=== PATIENT | female | born 1965 | race Caucasian/White ===

== ENCOUNTER 2022-06-24 03:26 | Emergency (ER) | payer SELFPAY ==
[2022-06-24 03:34] VITALS: BP 159/81; PULSE 80; RESP 16; TEMP 37.2; O2SAT 96; BMI 29.3
--- NOTE | 2022-06-24 03:47 | ED_ITS ---
HPI - Abdominal Pain General Date Seen: 06/24/22 Chief Complaint: Abdominal Pain Stated Complaint: Stomach hurts real bad Time Seen by Provider: 06/24/22 03:31 Source: patient Mode of arrival: ambulatory Limitations: no limitations History of Present Illness HPI narrative: Patient is a 57-year-old diabetic type 2 presents here with epigastric burning for the last 24 hours, she notes that it is in her stomach, seemingly worse tonight, that she was having a trouble sleeping. She has tried antacids for this with really no improvement, was able eat 3 meals yesterday incident eating does not really exacerbate or make it better. Her bowel movements have been normal. She has had no nausea, vomiting associated with this denies a fevers chills back pain, radiation of discomfort. Wonders if it is related to the fact that she has been off her omeprazole for approximately a month, she also has not taking her diabetic medications. No previous history of any heart issues, but she is a smoker times 40+ years, no blood in her stools, no darkening of her stools, They have just moved here from [place] in the last 2 weeks and have not yet established with any providers. MD elicited complaint: abdominal pain Pertinent past history: gastritis Onset (ago): day(s) (1-2) Pain Consistency: constant Location: epigastric Severity: moderate Quality: fullness and burning Radiation: none Migration to: no migration Exacerbating factors: movement and rest Relieving factors: nothing Associated symptoms: denies other symptoms Treatments prior to arrival: antacids Related Data Patient : No Previous Rx's Medication Instructions Recorded omeprazole 20 mg capsule,delayed 20 mg PO DAILY #30 caps 06/24/22 release Allergies Allergy/AdvReac Type Severity Reaction Status Date / Time duloxetine [From Cymbalta] AdvReac Verified 06/24/22 03:37 hydromorphone [From Dilaudid] AdvReac Verified 06/24/22 03:37 morphine AdvReac Verified 06/24/22 03:37 Penicillins AdvReac Verified 06/24/22 03:37 Review of Systems Status of ROS Reports: 10 or more systems reviewed and unremarkable except as noted in History and below [facility] Medical History Diabetes mellitus, type 2 Surgical History History of appendectomy History of cholecystectomy Social History Smoking Status: Current every day smoker What tobacco products do you use: cigarettes Do you use any of these nicotine containing products: None Non-prescribed substance use: denies use Exam Narrative: Exam Narrative: Patient is seen in room 6 in no apparent distress, she is sitting in the room quietly, with her vital signs are reviewed and normal, her pupils equal round reactive to light her TMs are normal oropharynx is normal neck is supple full range of motion her chest is clear bilaterally with no wheezing crackles noted heart sounds are normal, with occasional wheezes in her chest. Abdomen is soft and obese, she has some tenderness in her epigastric in deep palpation. But is otherwise normal. Bowel sounds are normal throughout her entire abdomen. There is no peritoneal signs, no organomegaly, and no CVA tenderness, she was all extremities independently and well, Const: Vital Signs, click to edit/add: Vital Signs - 24 hr 06/24/22 03:34 Temperature 98.9 F Pulse Rate [Left P ulse Oximeter] 80 Respiratory Rate 16 Blood Pressure [Le ft Upper Arm] 159/81 H Pulse Oximetry 96 Oxygen Delivery Me thod Room Air Documenting provider has reviewed patient's vital signs: yes Course Course Hospital Course: Discussed with the patient her EKG, laboratory work was normal, given the fact that the pain is gone on for 24 hours, and his epigastric and atypical for cardiac, even though she has risk factors I think this is unlikely to be cardiac ischemia, her heart score is also low. I think follow-up with primary care is indicated cause of her hyperglycemia, I explained to her that I think within the next week this should be done she was in agreement, the physician I suggested t hat she see is a very good physician will be able to help her. Smoking cessation is also suggested, Vital Signs Vital signs: Initial Vital Signs Temperature 98.9 F 06/24/22 03:34 Temperature Source Temporal Artery Scan 06/24/22 03:34 Pulse Rate 80 06/24/22 03:34 Respiratory Rate 16 06/24/22 03:34 Blood Pressure 159/81 H 06/24/22 03:34 Blood Pressure Mean 107 06/24/22 03:34 Blood Pressure Position Sitting 06/24/22 03:34 Pulse Oximetry 96 06/24/22 03:34 Oxygen Delivery Method 06/24/22 03:34 Vital Signs Temperature 98.9 F 06/24/22 03:34 Pulse Rate 80 06/24/22 03:34 Respiratory Rate 16 06/24/22 03:34 Blood Pressure 159/81 H 06/24/22 03:34 Pulse Oximetry 96 06/24/22 03:34 Oxygen Delivery Method 06/24/22 03:34 Temperature 98.9 F 06/24/22 03:34 Pulse Rate 80 06/24/22 03:34 Respiratory Rate 16 06/24/22 03:34 Blood Pressure 159/81 H 06/24/22 03:34 Pulse Oximetry 96 06/24/22 03:34 Oxygen Delivery Method 06/24/22 03:34 MDM - Abdominal Pain MDM Narrative Medical decision making narrative: During the evaluation of this patient I considered multiple differential diagnosis including life-threatening differentials which are appendicitis, aortic aneurysm, mesenteric ischemia, bowel perforation, ectopic , volvulus and bowel obstruction, other differential diagnosis include but are not limited to inflammatory bowel disease, cholecystitis, pancreatitis, hepatitis, gastritis, GERD, diverticulitis, peptic ulcer disease, pyelonephritis/UTI, renal colic/stone, pelvic inflammatory disease, cervicitis, endometritis, intrauterine , dysfunctional uterine bleeding, ovarian cyst/torsion, spontaneous as well as other etiologies In addition I think ruling out a heart issue given the fact that she is a smoker and a diabetic is important, I will add a troponin EKG, and likely repeat these. Most likely diagnosis here however is more of a gastritis type picture. Given the above findings and her Medical Records Attestation: I reviewed the patient's medical records. Lab Data Attestation: I reviewed the patient's lab results. Labs: Lab Results 06/24/22 06/24/22 06/24/22 Range/Units 03:50 03:50 03:50 WBC 9.21 (4.50-11.00) K/uL RBC 4.98 (4.00-5.20) m/uL Hgb 14.9 (12.0-16.0) gm/dL Hct 43.2 (33.0-51.0) % MCV 87 (80-100) fL MCH 30 (26-34) pg MCHC 35 (32-36) gm/dL RDW Coeff of Min 12.8 (11.5-15.5) % Plt Count 366 (140-440) K/uL Neut % (Auto) 42.6 (42.0-72.0) % Lymph % (Auto) 46.3 H (20-44) % [place] % (Auto) 7.3 (0.0-11.0) % Eos % (Auto) 3.0 (0.0-7.0) % Baso % (Auto) 0.7 (0.0-3.0) % Neut # (Auto) 3.93 (1.7-7.0) K/uL Lymph # (Auto) 4.30 H (0.90-2.90) K/uL [place] # (Auto) 0.70 (0.00-0.90) K/UL Eos # (Auto) 0.28 (0.00-0.50) K/uL Baso # (Auto) 0.06 (0.00-0.30) K/uL Abs Immat Gran (auto) 0.01 (0.00-0.30) K/uL Sodium 137 (135-149) mmol/L Potassium 4.1 (3.6-5.1) mmol/L Chloride 101 (96-114) mmol/L Carbon Dioxide 25 (20-32) mmol/L BUN 17 (7-30) mg/dL Creatinine 0.6 (0.5-1.5) mg/dL Estimated Creat Clear 81.82 Estimated GFR 105 ml/min Glucose 307 H (60-115) mg/dL Calcium 9.9 (8.4-10.6) mg/dL Total Bilirubin 0.4 (0.1-1.5) mg/dL Direct Bilirubin 0.1 (0.0-0.5) mg/dL AST 18 (12-35) U/L ALT 25 (4-35) U/L Alkaline Phosphatase 84 (40-150) U/L Total Protein 7.7 (6.0-8.3) g/dL Albumin 4.6 (3.3-5.0) g/dL Amylase 66 (18-89) U/L Lipase 133 (23-300) U/L Urine Color Yellow (Yellow) Urine Appearance Clear (Clear) Urine pH 5.5 (5.0-8.5) Ur Specific [place] >= 1.030 (1.000-1.030) Urine Protein Negative (Negative) Urine Glucose (UA) 2+ A (Negative) Urine Ketones Negative (Negative) Urine Blood Negative (Negative) Urine Nitrite Negative (Negative) Urine Bilirubin Negative (Negative) Urine Urobilinogen 0.2 (0.2-1.0) Ur Leukocyte Esterase Negative (Negative) Urine RBC 0-2 (0-2) Urine WBC 0-2 (0-5) Ur Squamous Epith Cells Few (None-Few) Urine Bacteria Few A (None) Ethyl Alcohol < 0.01 L (0.01-0.03) % POC Troponin I (0.01-0.04) ng/ml 06/24/22 Range/Units 03:50 WBC (4.50-11.00) K/uL RBC (4.00-5.20) m/uL Hgb (12.0-16.0) gm/dL Hct (33.0-51.0) % MCV (80-100) fL MCH (26-34) pg MCHC (32-36) gm/dL RDW Coeff of Min (11.5-15.5) % Plt Count (140-440) K/uL Neut % (Auto) (42.0-72.0) % Lymph % (Auto) (20-44) % [place] % (Auto) (0.0-11.0) % Eos % (Auto) (0.0-7.0) % Baso % (Auto) (0.0-3.0) % Neut # (Auto) (1.7-7.0) K/uL Lymph # (Auto) (0.90-2.90) K/uL [place] # (Auto) (0.00-0.90) K/UL Eos # (Auto) (0.00-0.50) K/uL Baso # (Auto) (0.00-0.30) K/uL Abs Immat Gran (auto) (0.00-0.30) K/uL Sodium (135-149) mmol/L Potassium (3.6-5.1) mmol/L Chloride (96-114) mmol/L Carbon Dioxide (20-32) mmol/L BUN (7-30) mg/dL Creatinine (0.5-1.5) mg/dL Estimated Creat Clear Estimated GFR ml/min Glucose (60-115) mg/dL Calcium (8.4-10.6) mg/dL Total Bilirubin (0.1-1.5) mg/dL Direct Bilirubin (0.0-0.5) mg/dL AST (12-35) U/L ALT (4-35) U/L Alkaline Phosphatase (40-150) U/L Total Protein (6.0-8.3) g/dL Albumin (3.3-5.0) g/dL Amylase (18-89) U/L Lipase (23-300) U/L Urine Color (Yellow) Urine Appearance (Clear) Urine pH (5.0-8.5) Ur Specific [place] (1.000-1.030) Urine Protein (Negative) Urine Glucose (UA) (Negative) Urine Ketones (Negative) Urine Blood (Negative) Urine Nitrite (Negative) Urine Bilirubin (Negative) Urine Urobilinogen (0.2-1.0) Ur Leukocyte Esterase (Negative) Urine RBC (0-2) Urine WBC (0-5) Ur Squamous Epith Cells (None-Few) Urine Bacteria (None) Ethyl Alcohol (0.01-0.03) % POC Troponin I 0.00 L (0.01-0.04) ng/ml ECG Data Attestation: I personally reviewed and interpreted this ECG as follows: ECG interpretation date: 06/24/22 ECG interpretation time: 04:56 Prior ECG tracings: not available for review Interpretation: Normal sinus rhythm with a ventricular rate of 79, normal QRS, normal QT, normal IA, no acute ST wave changes Assessment: Normal EKG Discharge Plan Discharge Clinical Impression: Diabetes, Gastritis Patient Disposition: Home w/ Parent or Adult Condition: Stable Instructions: Gastritis (DC), Diabetes and Nutrition (ED), Type 2 Diabetes Management for Adults (ED) Additional Instructions: Home, rest, take medications as directed, follow-up with the physician that I said your referred to, he can help you with her medications and getting him back onto tap with your diabetes. Prescriptions: New omeprazole 20 mg capsule,delayed release(DR/EC) 20 mg PO DAILY Qty: 30 2RF Follow Up/Referrals: Jones,Saulo, MD [Staff Physician] - Provider,Not a Local [Primary Care Provider] - Stand Alone Forms: [employer] Info Instructions
[2022-06-24] MEDS: 0.9 % SODIUM CHLORIDE 1000 ml 1,000 ML IV (03:57)
[2022-06-24] MEDS: ONDANSETRON 2 MG/ML inj 4 MG IVP (03:57)
[2022-06-24] MEDS: PANTOPRAZOLE SODIUM 40 MG INJ IVP (03:57)
[2022-06-24 04:03] LABS: Basophils Absolute Auto 0.06 K/uL (0.00-0.30); Basophils Percent Auto 0.7 % (0.0-3.0); Eosinophils Absolute Auto 0.28 K/uL (0.00-0.50); Hematocrit 43.2 % (33.0-51.0); Hemoglobin* 14.9 gm/dL (12.0-16.0); Immature Granulocytes Abs Auto 0.01 K/uL (0.00-0.30); Lymphocytes Percent Auto 46.3 % (20-44); Mean Corpuscular HGB Conc 35 gm/dL (32-36); Mean Corpuscular Hemoglobin 30 pg (26-34); Mean Corpuscular Volume 87 fL (80-100); Monocytes Percent Auto 7.3 % (0.0-11.0); Neutrophils Absolute Auto 3.93 K/uL (1.7-7.0); Neutrophils Percent Auto 42.6 % (42.0-72.0); Platelet Count* 366 K/uL (140-440); RDW Coefficient of Variation % 12.8 % (11.5-15.5); Red Blood Count 4.98 m/uL (4.00-5.20); White Blood Count* 9.21 K/uL (4.50-11.00)
[2022-06-24] MEDS: GI COCKTAIL (VISC LIDO/ANTACID) 30 ML PO (04:05)
[2022-06-24 04:13] LABS: Appearance Urine Clear (Clear); Bilirubin Urine Negative (Negative); Blood Urine Negative (Negative); Color Urine Yellow (Yellow); Glucose Urine 2+ (Negative); Ketones Urine Negative (Negative); Leukocyte Esterase Urine Negative (Negative); Nitrite Urine Negative (Negative); Protein Urine Negative (Negative); Specific Gravity Urine >= 1.030 (1.000-1.030); Urobilinogen Urine 0.2 (0.2-1.0); pH Urine 5.5 (5.0-8.5)
[2022-06-24 04:14] LABS: Slide Review Reflex No
[2022-06-24 04:17] LABS: Albumin* 4.6 g/dL (3.3-5.0)
[2022-06-24 04:18] LABS: Chloride* 101 mmol/L (96-114); Potassium* 4.1 mmol/L (3.6-5.1); Sodium* 137 mmol/L (135-149)
[2022-06-24 04:20] LABS: Amylase* 66 U/L (18-89); Aspartate Amino Transferase* 18 U/L (12-35); Bilirubin Direct* 0.1 mg/dL (0.0-0.5); Bilirubin Total* 0.4 mg/dL (0.1-1.5); Blood Urea Nitrogen* 17 mg/dL (7-30); Carbon Dioxide* 25 mmol/L (20-32); Creatinine* 0.6 mg/dL (0.5-1.5); Est. Creatinine Clearance* 81.82; Estimated Glomerular Filt Rate 105 ml/min; Total Protein* 7.7 g/dL (6.0-8.3)
[2022-06-24 04:21] LABS: Alanine Aminotransferase* 25 U/L (4-35); Alkaline Phosphatase* 84 U/L (40-150); Calcium* 9.9 mg/dL (8.4-10.6); Glucose* 307 mg/dL (60-115); Lipase* 133 U/L (23-300)
[2022-06-24 04:28] LABS: Ethanol* < 0.01 % (0.01-0.03); RBC Urine 0-2 (0-2); WBC Urine 0-2 (0-5)
[2022-06-24 04:29] LABS: Bacteria Urine Few; Squamous Epithelial Cell Urine Few (None-Few)
[2022-06-24 05:03] VITALS: BP 148/76; PULSE 74; RESP 16
== END 2022-06-24 05:03 | disposition home or self-care (01) ==
PROVIDERS: Emergency Provider Family Medicine
DX: E11.9 Type 2 diabetes mellitus without complications (principal); K29.70 Gastritis, unspecified, without bleeding
CPT/HCPCS: 36415; 80048; 80076; 81001; 82077; 82150; 83690; 85025; 87086; 93005; 96374; 96375; 99284; A9270; C9113; J2405; J7030

== ENCOUNTER 2022-07-13 09:25 | Outpatient (CLI) | payer OTHER, SELFPAY ==
[2022-07-13 14:57] LABS: Cholesterol* 277 mg/dL (90-199)
[2022-07-13 14:58] LABS: HDL Cholesterol* 48 mg/dL (>=50); LDL Cholesterol Calculated 196 mg/dL (<100); Triglycerides* 165 mg/dL (40-149)
== END 2022-07-13 09:26 | disposition home or self-care (01) ==
LOC: FBOREF 09:26
PROVIDERS: Visit Provider Family Medicine
DX: E78.5 Hyperlipidemia, unspecified (principal); E11.9 Type 2 diabetes mellitus without complications
CPT/HCPCS: 80061

== ENCOUNTER 2022-08-04 14:55 | Emergency (ER) | payer OTHER, SELFPAY ==
[2022-08-04 15:04] VITALS: BP 135/82; PULSE 86; RESP 16; TEMP 36.8; O2SAT 92; BMI 31.0
--- NOTE | 2022-08-04 16:04 | CRLHL7_ITS ---
For Patients: As a result of the Century Cures Act, medical imaging exams and procedure reports are released immediately into your electronic medical record. You may view this report before your referring provider. If you have questions, please contact your health care provider. INDICATION: Headache TECHNIQUE: CT head without contrast. COMPARISON: None FINDINGS: CSF spaces: Within normal limits for age. Brain parenchyma: The palacios-white differentiation is normal. No sign of mass, hemorrhage, or midline shift. Skull base and calvarium: Mild pansinus mucosal thickening. The visualized orbits are grossly unremarkable. No skull fractures. IMPRESSION: No acute intracranial abnormalities. Mild pansinus mucosal thickening. Dictated by Kurt Preston MD @ 08/04/2022 4:37:38 PM Please note that all CT scans at this facility use dose modulation, iterative reconstruction, and/or weight-based dosing when appropriate to reduce radiation dose to as low as reasonably achievable. Dictated by: Kurt Preston MD @ 08/04/2022 16:37:44 (Electronically Signed)
--- NOTE | 2022-08-04 16:07 | ED_ITS ---
HPI - General Adult General Chief complaint: Headache/Migraine Stated complaint: Sharp Pain in head and down Left Arm Seeing Stars Time Seen by Provider: 08/04/22 15:29 History of Present Illness HPI narrative: This 57-year-old female comes in with her because of a sudden onset s ymptoms that occurred an hour so prior to arrival. She states she was ambulating and had sudden onset of headache, chest pain, and lightheadedness. She states that she almost lost consciousness. She reports some visual changes including seeing stars in her visual field that lasted about 20 minutes. She states that she does have a history of occasional migraine headaches. She does not report any nausea, vomiting, shortness of breath, or diaphoresis. Prior to this she states that she has good exercise tolerance. She does have diabetes. Related Data Home Medications Medication Instructions Recorded Confirmed ceylon cinnamon 1,400 mg PO QDAY 07/13/22 08/04/22 ipratropium 20 mcg-albuterol 100 1 puff inhalation Q6H 07/13/22 08/04/22 mcg/actuation mist for inhalation (Combivent Respimat) Previous Rx's Medication Instructions Recorded omeprazole 20 mg capsule,delayed 20 mg PO DAILY #30 caps 06/24/22 release empagliflozin 25 mg tablet 25 mg PO QAM #30 tabs 07/13/22 (Jardiance) glimepiride 4 mg tablet 4 mg PO QAM #30 tabs 07/13/22 atorvastatin 20 mg tablet 20 mg PO QDAY #90 tabs 07/14/22 Blood Glucose Meter #1 ea 08/02/22 Diabetic Test Strips #100 ea 08/02/22 fluconazole 150 mg tablet 150 mg PO Q3D 2 doses #2 tabs 08/02/22 (Diflucan) lancets 30 gauge #100 ea 08/02/22 ketorolac 10 mg tablet 10 mg PO Q8H 5 days #15 tabs 08/04/22 ondansetron HCl 4 mg tablet 4 mg PO Q6H #20 tabs 08/04/22 Allergies Allergy/AdvReac Type Severity Reaction Status Date / Time duloxetine [From Cymbalta] AdvReac Verified 08/04/22 15:10 hydromorphone [From Dilaudid] AdvReac Verified 08/04/22 15:10 morphine AdvReac Verified 08/04/22 15:10 Penicillins AdvReac Verified 08/04/22 15:10 Review of Systems Status of ROS: Reports: 10 or more systems reviewed and unremarkable except as noted in History and below Narrative: Constitutional: No fevers, no weight gain or loss. Eyes: No discharge. She saw stars in her visual field for about 20 minutes after the onset of her symptoms. HENT: No congestion, no sore throat, no ear pain. Cardiovascular: No palpitations. She reports chest pain. Respiratory: No shortness of breath, no wheezes, no cough. Gastrointestinal: No abdominal pain, no vomiting, no diarrhea. Genitourinary: No dysuria, no hematuria. Musculoskeletal: Normal range of motion. Skin: No rashes, no pruritis. Neurological: No dizziness, weakness, sensory change, speech change. Endo/Heme/Allergies: No bruising or bleeding. No polydipsia. Pysch: no suicidality, no anxiety, no insomnia. All other systems reviewed and are negative. [facility] Medical History (Updated 08/04/22 @ 18:29 by Jero Collazo MD) COPD (chronic obstructive pulmonary disease) Hyperlipidemia Type 2 diabetes mellitus Yeast vaginitis Surgical History (Updated 07/23/22 @ 23:26 by Kurt Jones MD) History of appendectomy History of bladder surgery History of section History of cholecystectomy Family History (Updated 07/17/22 @ 01:06 by Kurt Jones MD) Maternal Grandmother Heart disease Paternal Grandfather Heart disease Other Diabetes Stroke Social History (Updated 07/17/22 @ 01:05 by Kurt Jones MD) Narrative: , two kids, Deli food demonstrator, 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 HEENT: Normocephalic, atraumatic. Neck: Normal range of motion. Nontender. Supple. Heart: Regular. No murmurs. Normal rate. Intact distal pulses. Lungs: Clear to auscultation. No chest discomfort. No wheezes, rhonchi, or rales. Abdomen: Normal bowel sounds. Nontender. No rebound tenderness. Genitalia: Deferred. Back: No midline tenderness. Normal range of motion. Extremities: Normal range of motion. No injury. Skin: Intact. No rash. Warm. No erythema or pallor. Neurologic: No altered sensation. No weakness. Alert and oriented. Psychiatric: No suicidality. No anxiety or depression. No insomnia. Nursing notes and vitals signs are reviewed. Const: Vital Signs, click to edit/add: Vital Signs - 24 hr 08/04/22 15:04 08/04/22 18:01 Temperature 98.3 F 98.2 F Pulse Rate [Right Pulse Oximeter] 86 Respiratory Rate 16 Blood Pressure [Ri ght Upper Arm] 135/82 Pulse Oximetry 92 Oxygen Delivery Me thod Room Air Course Vital Signs Vital signs: Initial Vital Signs Temperature 98.3 F 08/04/22 15:04 Temperature Source Temporal Artery Scan 08/04/22 15:04 Pulse Rate 86 08/04/22 15:04 Respiratory Rate 16 08/04/22 15:04 Blood Pressure 135/82 08/04/22 15:04 Blood Pressure Mean 99 08/04/22 15:04 Blood Pressure Position Sitting 08/04/22 15:04 Pulse Oximetry 92 08/04/22 15:04 Oxygen Delivery Method 08/04/22 15:04 Vital Signs Temperature 98.3 F 08/04/22 15:04 Pulse Rate 86 08/04/22 15:04 Respiratory Rate 16 08/04/22 15:04 Blood Pressure 135/82 08/04/22 15:04 Pulse Oximetry 92 08/04/22 15:04 Oxygen Delivery Method 08/04/22 15:04 Temperature 98.2 F 08/04/22 18:01 Pulse Rate 86 08/04/22 15:04 Respiratory Rate 16 08/04/22 15:04 Blood Pressure 135/82 08/04/22 15:04 Pulse Oximetry 92 08/04/22 15:04 Oxygen Delivery Method 08/04/22 15:04 Medical Decision Making [facility] Narrative Medical decision making narrative: This patient comes in with headache, lightheadedness, some visual changes, and some chest discomfort. She arrives with normal vital signs. She did not have any other symptoms specifically. She states that she has good exercise tolerance. She does have diabetes but does not report any history heart disease. EKG shows normal sinus rhythm without any ST or T-wave abnormalities. Lab results also returned with normal findings. In particular her troponin is 0. CT scan of the head also shows no acute abnormalities. The patient received oral doses of Toradol 10 mg, Benadryl 25 mg, and Zofran 4 mg. This brought great relief to her symptoms. As for her chest discomfort she does state that she can reproduce this pain somewhat by palpating in upper sternal area. At the time of discharge the patient appears safe for outpatient management. The treatment plan is reviewed along with written and verbal return precautions. Reasons to return and the importance of close followup were also reviewed. Lab Data Labs: Lab Results 08/04/22 08/04/22 08/04/22 Range/Units 16:30 16:30 16:30 WBC 10.51 (4.50-11.00) K/uL RBC 4.60 (4.00-5.20) m/uL Hgb 13.6 (12.0-16.0) gm/dL Hct 41.3 (33.0-51.0) % MCV 90 (80-100) fL MCH 30 (26-34) pg MCHC 33 (32-36) gm/dL RDW Coeff of Min 13.1 (11.5-15.5) % Plt Count 350 (140-440) K/uL Neut % (Auto) 44.9 (42.0-72.0) % Lymph % (Auto) 44.6 H (20-44) % [place] % (Auto) 6.9 (0.0-11.0) % Eos % (Auto) 2.9 (0.0-7.0) % Baso % (Auto) 0.6 (0.0-3.0) % Neut # (Auto) 4.73 (1.7-7.0) K/uL Lymph # (Auto) 4.70 H (0.90-2.90) K/uL [place] # (Auto) 0.70 (0.00-0.90) K/UL Eos # (Auto) 0.30 (0.00-0.50) K/uL Baso # (Auto) 0.06 (0.00-0.30) K/uL Abs Immat Gran (auto) 0.01 (0.00-0.30) K/uL Imm/Tot Granulo (auto) 0.1 % D-Dimer Quant (PE/DVT) 0.47 (0.00-0.50) ug/ml Sodium 141 (135-149) mmol/L Potassium 4.1 (3.6-5.1) mmol/L Chloride 108 (96-114) mmol/L Carbon Dioxide 28 (20-32) mmol/L BUN 15 (7-30) mg/dL Creatinine 0.6 (0.5-1.5) mg/dL Estimated Creat Clear 85.57 Estimated GFR 105 ml/min Glucose 65 (60-115) mg/dL Calcium 9.8 (8.4-10.6) mg/dL C-Reactive Protein (0.5-1.0) mg/dL POC Troponin I (0.01-0.04) ng/ml 08/04/22 08/04/22 Range/Units 16:30 16:49 WBC (4.50-11.00) K/uL RBC (4.00-5.20) m/uL Hgb (12.0-16.0) gm/dL Hct (33.0-51.0) % MCV (80-100) fL MCH (26-34) pg MCHC (32-36) gm/dL RDW Coeff of Min (11.5-15.5) % Plt Count (140-440) K/uL Neut % (Auto) (42.0-72.0) % Lymph % (Auto) (20-44) % [place] % (Auto) (0.0-11.0) % Eos % (Auto) (0.0-7.0) % Baso % (Auto) (0.0-3.0) % Neut # (Auto) (1.7-7.0) K/uL Lymph # (Auto) (0.90-2.90) K/uL [place] # (Auto) (0.00-0.90) K/UL Eos # (Auto) (0.00-0.50) K/uL Baso # (Auto) (0.00-0.30) K/uL Abs Immat Gran (auto) (0.00-0.30) K/uL Imm/Tot Granulo (auto) % D-Dimer Quant (PE/DVT) (0.00-0.50) ug/ml Sodium (135-149) mmol/L Potassium (3.6-5.1) mmol/L Chloride (96-114) mmol/L Carbon Dioxide (20-32) mmol/L BUN (7-30) mg/dL Creatinine (0.5-1.5) mg/dL Estimated Creat Clear Estimated GFR ml/min Glucose (60-115) mg/dL Calcium (8.4-10.6) mg/dL C-Reactive Protein 2.9 H (0.5-1.0) mg/dL POC Troponin I 0.00 L (0.01-0.04) ng/ml Imaging Data CT scan - head: Radiologist's impression: No acute intracranial abnormalities. Mild pansinus mucosal thickening. ECG Data Attestation: I personally reviewed and interpreted this ECG as follows: Interpretation: Normal sinus rhythm. Rate is 86 beats per minute. There are no ST or T-wave abnormalities. Discharge Plan Discharge Clinical Impression: Migraine, Atypical chest pain Patient Disposition: Home, Self-Care Condition: Improved Additional Instructions: Take medication as needed and indicated. Follow up with MD or return if worsening. Prescriptions: New ondansetron HCl 4 mg tablet 4 mg PO Q6H Qty: 20 0RF ketorolac 10 mg tablet 10 mg PO Q8H 5 Days Qty: 15 0RF No Action ceylon cinnamon 1,400 mg PO QDAY Combivent Respimat 20-100 mcg/actuation mist 1 puff inhalation Q6H glimepiride 4 mg tablet 4 mg PO QAM Qty: 30 5RF Rx Instructions: administer with breakfast Jardiance 25 mg tablet 25 mg PO QAM Qty: 30 5RF omeprazole 20 mg capsule,delayed release(DR/EC) 20 mg PO DAILY Qty: 30 2RF atorvastatin 20 mg tablet 20 mg PO QDAY Qty: 90 1RF fluconazole [Diflucan] 150 mg tablet 150 mg PO Q3D Qty: 2 0RF (DME) Blood Glucose Meter Misc See Rx Instructions .Route Qty: 1 0RF Rx Instructions: As directed (DME) Diabetic Test Strips Misc See Rx Instructions .Route Qty: 100 3RF Rx Instructions: Tests BID (DME) lancets 30 gauge misc See Rx Instructions .Route Qty: 100 2RF Rx Instructions: Tests BID Follow Up/Referrals: Provider,Not a Local [Primary Care Provider] - Stand Alone Forms: [facility] Info Instructions
[2022-08-04 17:02] LABS: Basophils Absolute Auto 0.06 K/uL (0.00-0.30); Basophils Percent Auto 0.6 % (0.0-3.0); Eosinophils Percent Auto 2.9 % (0.0-7.0); Hematocrit 41.3 % (33.0-51.0); Hemoglobin* 13.6 gm/dL (12.0-16.0); Immature Granulocytes Abs Auto 0.01 K/uL (0.00-0.30); Immature Granulocytes Pct Auto 0.1 %; Lymphocytes Percent Auto 44.6 % (20-44); Mean Corpuscular HGB Conc 33 gm/dL (32-36); Mean Corpuscular Hemoglobin 30 pg (26-34); Mean Corpuscular Volume 90 fL (80-100); Monocytes Percent Auto 6.9 % (0.0-11.0); Neutrophils Absolute Auto 4.73 K/uL (1.7-7.0); Neutrophils Percent Auto 44.9 % (42.0-72.0); Platelet Count* 350 K/uL (140-440); RDW Coefficient of Variation % 13.1 % (11.5-15.5); White Blood Count* 10.51 K/uL (4.50-11.00)
[2022-08-04 17:07] LABS: Slide Review Reflex No
[2022-08-04 17:29] LABS: Chloride* 108 mmol/L (96-114); Sodium* 141 mmol/L (135-149)
[2022-08-04 17:30] LABS: D Dimer Quantitative* 0.47 ug/ml (0.00-0.50); Potassium* 4.1 mmol/L (3.6-5.1)
[2022-08-04 17:32] LABS: Carbon Dioxide* 28 mmol/L (20-32); Creatinine* 0.6 mg/dL (0.5-1.5); Est. Creatinine Clearance* 85.57; Estimated Glomerular Filt Rate 105 ml/min
[2022-08-04 17:33] LABS: Blood Urea Nitrogen* 15 mg/dL (7-30); Calcium* 9.8 mg/dL (8.4-10.6); Glucose* 65 mg/dL (60-115)
[2022-08-04 17:46] LABS: C Reactive Protein* 2.9 mg/dL (0.5-1.0)
[2022-08-04 18:01] VITALS: TEMP 36.8
[2022-08-04] MEDS: HYDROCODONE-ACETAMIN 5-325 MG 1 TAB PO (18:01)
[2022-08-04] MEDS: diphenhydrAMINE 25 MG CAPSULE PO (18:01)
[2022-08-04] MEDS: KETOROLAC 10 MG TABLET PO (18:02)
[2022-08-04] MEDS: ONDANSETRON ODT 4 MG TAB PO (18:03)
== END 2022-08-04 18:42 | disposition home or self-care (01) ==
PROVIDERS: Emergency Provider Emergency Medicine Emergency Medical Services
DX: G43.909 Migraine, unspecified, not intractable, without status migrainosus (principal); R07.89 Other chest pain
CPT/HCPCS: 36415; 70450; 80048; 84484; 85025; 85379; 86140; 93005; 99284; 99285; A9270

== ENCOUNTER 2022-09-29 10:25 | Outpatient (CLI) | payer OTHER, SELFPAY | END 2022-09-29 10:26 | disposition home or self-care (01) | PROVIDERS: PCP Family Medicine; Visit Provider Family Medicine | DX: R10.9 Unspecified abdominal pain (principal) | CPT/HCPCS: 87086 ==

== ENCOUNTER 2022-10-03 07:27 | Outpatient (CLI) | payer OTHER, SELFPAY ==
--- NOTE | 2022-10-03 08:00 | CRLHL7_ITS ---
For Patients: As a result of the Century Cures Act, medical imaging exams and procedure reports are released immediately into your electronic medical record. You may view this report before your referring provider. If you have questions, please contact your health care provider. [facility] ??? [facility] MYOCARDIAL PERFUSION SCAN CLINICAL HISTORY: 57-year-old female. Chest pain. Current smoker. Shortness of breath on exertion. Type 2 diabetes. Hyperlipidemia. COPD. 5 feet 3 inches, 179 pounds. TECHNIQUE: (Resting SPECT and Stress Gated SPECT with wall motion and ejection fraction) Stress: Pharmacologic ??? walking Lexiscan (0.4 mg) (IV) Dose (Stress/Rest): 30.2 mCi/8.60 mCi Tc-99m Sestamibi (IV) Comparison: None FINDINGS: There is good uptake of activity by the left ventricle. No left ventricular enlargement is noted. There is breast attenuation. No other significant fixed or reversible defects are identified. The gated images demonstrate a normal left ventricular ejection fraction of 65 percent. No regional wall motion abnormalities are identified. IMPRESSION: 1. There is no evidence of significant myocardial ischemia or infarction. 2. Normal left ventricular ejection fraction of 65 percent. This study was jointly reviewed by radiology and cardiology. JUAN DIEGO STYLES M.D. MAX BURTON M.D. [email or web address] Transcribed: 2:43 pm DW/Dictated by: Juan Diego Styles MD @ 10/03/2022 1:43:00 PM (Electronically Signed)
[2022-10-03 09:57] VITALS: BP 137/74; PULSE 95; RESP 18
[2022-10-03] MEDS: SODIUM CHLORIDE 0.9 % (FLUSH) 10 ML SYRINGE IVF (10:01)
[2022-10-03] MEDS: REGADENOSON 0.4 MG/5 ML SYRINGE IVP (10:01)
--- NOTE | 2022-10-03 10:17 | W.PM.STED ---
Stress Test Note Date Date Seen: 10/03/22 Date of test: 10/03/22 Providers Primary care provider: Kurt Jones Stress test physician: Lius Zarco Stress Test Note Stress test ordered: Lexiscan Indication for test: Chest pain Stress test medicine: Lexiscan Results discussion: Patient is a very nice lady who presents for the above test, after reviewing her EKG, and cardiac stress test medical history form, she would like to proceed after the risks benefits and side effects are discussed. She is able to walk on the treadmill, following normal Lexiscan protocol. During this test she had no chest pain no shortness of breath or any anginal equivalent symptoms, her maximum heart rate was 115, which is 82% of the target. Her maximum blood pressure was 142/79. Review of the tracing showed no significant ST wave changes, there was no dysrhythmias, she recovered normally in the recovery period. Impression: Negative electrographic portion of Lexiscan Follow up suggested: We will discharge her home, nuclear portion will be read by Cardiology nuclear Medicine, clinical correlation with this will be needed, she will follow up with her primary care physician.
== END 2022-10-03 10:05 | disposition home or self-care (01) ==
LOC: STRESS 07:28
PROVIDERS: PCP Family Medicine; Visit Provider Family Medicine
DX: R07.9 Chest pain, unspecified (principal)
CPT/HCPCS: 78452; 93016; 93017; A9500; J2785

== ENCOUNTER 2022-10-05 10:38 | Outpatient (CLI) | payer OTHER, SELFPAY ==
--- NOTE | 2022-10-05 11:00 | CRLHL7_ITS ---
For Patients: As a result of the Century Cures Act, medical imaging exams and procedure reports are released immediately into your electronic medical record. You may view this report before your referring provider. If you have questions, please contact your health care provider. Indication: ABDOMINAL PAIN X1YR Technique: Postcontrast CT abdomen and pelvis. 88 cc Isovue 370 intravenous contrast. Please note that all CT scans at this facility use dose modulation, iterative reconstruction, and/or weight-based dosing when appropriate to reduce radiation dose to as low as reasonably achievable. Comparison: None Findings: Lung bases are clear. There is no intrahepatic mass. Gallbladder is absent. No biliary obstruction. Calcifications within the spleen. Pancreas normal. Normal adrenal glands. Normal kidneys. Normal stomach and duodenum. Unremarkable jejunum and ileum. Bladder normal. Normal uterus and ovaries. No bowel obstruction. Appendix is absent. No abdominal wall hernia. No free air, free fluid or adenopathy. There is no fracture. Impression: Status post appendectomy and cholecystectomy. No cause for abdominal pain. Please note that all CT scans at this facility use dose modulation, iterative reconstruction, and/or weight-based dosing when appropriate to reduce radiation dose to as low as reasonably achievable. Dictated by Kurt Prado MD @ 10/05/2022 1:20:21 PM (Electronically Signed)
== END 2022-10-05 10:39 | disposition home or self-care (01) ==
LOC: CT 10:39
PROVIDERS: PCP Family Medicine; Visit Provider Family Medicine
DX: R10.9 Unspecified abdominal pain (principal)
CPT/HCPCS: 74177; Q9967